=== PATIENT | male | born 2005 | race Caucasian/White ===

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

== ENCOUNTER 2025-01-11 10:03 | Emergency (ER) | payer BC, SELFPAY ==
[2025-01-11 10:17] VITALS: BP 131/73; PULSE 86; RESP 16; TEMP 37; O2SAT 100
--- NOTE | 2025-01-11 11:06 | ED.URI ---
HPI - URI/Sore Throat General Chief Complaint: Upper Respiratory Infection Stated Complaint: SORE THROAT/RUNNY NOSE/FEELS WARM Time Seen by Provider: 01/11/25 11:00 Source: patient and RN notes reviewed Mode of arrival: ambulatory Limitations: no limitations History of Present Illness HPI Narrative: 19-year-old male patient presents today complaining of sore throat and rhinorrhea since last night. Denies cough, ear pain, shortness of breath, fever. Currently rates his sore throat 6/10 and has tried no OTC treatment prior to arrival. Reports sick contacts at work and school. Related Data Allergies Allergy/AdvReac Type Severity Reaction Status Date / Time No Known Allergies Allergy Verified 03/10/24 17:12 [facility] Past Medical History Medical History Ear infection Strep throat Surgical History Surgical History History of tonsillectomy Family History Family History Other Hypertension Social History Social History Smoking status: Never smoker Alcohol intake: never Substance use: never Living arrangements: with family Gender identity (if verbalized by the patient): Male Comments At time of signature, I have reviewed and agree with nursing past medical, surgical, social and family history unless otherwise noted. Please see nursing chart for further information. There is no relevant family history pertinent to the presenting complaint Exam Narrative: GENERAL: Mildly ill-appearing, well-nourished, and in no acute distress. HEAD: Normocephalic, atraumatic. EYES: EOMI. No redness or drainage. Conjunctivae normal. ENT: Mucous membranes pink and moist. Nares clear. + rhinorrhea. TMs normal bilaterally. Throat very mildly erythematous without edema or exudate. Uvula midline. NECK: Normal AROM. Supple. No lymphadenopathy. CHEST: No respiratory distress. Clear to auscultation. HEART: Regular rate and rhythm. No murmur appreciated. EXTREMITIES: Normal range of motion. No edema. SKIN: Warm, dry, no rash. Capillary refill normal. Normal skin turgor. NEURO: No focal deficits. Alert and oriented x3. Gait steady. PSYCH: Normal affect. No signs of depression or anxiety. Course Course Level of Care: Express Care Visit Vital Signs Vital signs: Vital Signs Temperature 98.6 F 01/11/25 10:17 Pulse Rate 86 01/11/25 10:17 Respiratory Rate 16 01/11/25 10:17 Blood Pressure 131/73 01/11/25 10:17 Pulse Oximetry 100 01/11/25 10:17 Temperature 98.6 F 01/11/25 10:17 Pulse Rate 86 01/11/25 10:17 Respiratory Rate 16 01/11/25 10:17 Blood Pressure 131/73 01/11/25 10:17 Pulse Oximetry 100 01/11/25 10:17 Reviewed MDM - URI/Sore Throat MDM Narrative Medical decision making narrative: 19-year-old male patient presents today complaining of sore throat and rhinorrhea since last night. Denies cough, ear pain, shortness of breath, fever. Currently rates his sore throat 6/10 and has tried no OTC treatment prior to arrival. Reports sick contacts at work and school. Upon exam, patient is mildly ill appearing with a mildly erythematous throat. Rapid strep negative, influenza negative, COVID negative. Strep culture pending. Symptoms likely viral in etiology. Discussed [id number] medication use and duration of illness. No prescription medications indicated at this time. Anticipatory guidance given. Vital signs stable. Patient agrees with plan. Differential Diagnosis Differential diagnosis: Likely upper respiratory infection, viral infection, influenza, pharyngitis and other (Strep throat, COVID) Lab Data Attestation: I reviewed the patient's lab results. Lab results narrative: COVID negative, rapid strep negative, influenza negative Critical Care Time Critical Care Time Critical Care Time: No Discharge Plan Discharge Clinical Impression: Upper respiratory infection Qualifiers: URI type: unspecified URI Qualified Code(s): J06.9 - Acute upper respiratory infection, unspecified Patient Disposition: Home Condition: Stable Instructions: Upper Respiratory Infection (DC) Additional Instructions: Your COVID-19, influenza, and rapid strep swab were negative today at [facility]. You will be notified in a few days if the culture comes back positive for strep, and appropriate antibiotics will be called in for you at that time. Your symptoms are likely due to a viral illness, which is not treated with antibiotics. Viral symptoms can be present for up to 7-10 days. Take Tylenol or ibuprofen for fever or pain. You may try and allergy pill such as Zyrtec for your runny nose. Rest and stay hydrated. Follow up with your PCP in 7-10 days if symptoms are not improving. Go to the ER immediately if you have any difficulty breathing or swallowing. Patient Language: Polish Prescriptions: No Action methylprednisolone [Medrol (Humphrey)] 4 mg tablets,dose pack See Rx Instructions .ROUTE .COMPLEX Qty: 21 0RF Rx Instructions: orally per package directions mupirocin 2 % ointment 1 applic topical BID Qty: 22 0RF Rx Instructions: to wei Follow-up/Referrals: Oracio Bowles MD [Primary Care Provider, Family Practice] Stand Alone Forms: Work/School Release IP Time of Disposition: 11:09
[2025-01-11 11:09] LABS: EDCOVIDSCREEN Negative (Negative); EDINFLUASCREEN Negative (Negative); EDINFLUBSCREEN Negative (Negative); EDSTREPNEGPOS1 Negative (Negative)
== END 2025-01-11 11:15 | disposition home or self-care (01) ==
PROVIDERS: Emergency Provider Nurse Practitioner; PCP Emergency Medicine
DX: J06.9 Acute upper respiratory infection, unspecified (principal); Z20.822 Contact with and (suspected) exposure to COVID-19
CPT/HCPCS: 87081; 87426; 87804; 87880; 99213; G0463